=== PATIENT | male | born 1975 | race Two or more races ===

== ENCOUNTER 2019-07-15 21:50 | Emergency (ER) | payer BC, OTHER ==
[2019-07-15] MEDS ORDERED: Sodium Chloride 0.9% 1,000 ML IV ONE (21:52)
--- NOTE | 2019-07-15 21:55 | EDM.PDOC ---
ED HPI GENERAL MEDICAL PROBLEM - General Chief Complaint: Neuro Symptoms/Deficits Stated Complaint: SEIZURE Time Seen by Provider: 07/15/19 21:55 Source of Information: Reports: Patient - History of Present Illness INITIAL COMMENTS - FREE TEXT/NARRATIVE: HISTORY AND PHYSICAL: History of present illness: [Patient with seizure disorder presents post seizure, he had stopped his Dilantin one week prior generally taking 600 mg by mouth daily at bedtime currently asymptomatic no fever nausea vomiting chills sweats no chest pain shortness breath headache dizziness palpitation no bowel or urine symptoms] Review of systems: As per history of present illness and below otherwise all systems reviewed and negative. Past medical history: As per history of present illness and as reviewed below otherwise noncontributory. Surgical history: As per history of present illness and as reviewed below otherwise noncontributory. Social history: No reported history of drug or alcohol abuse. Family history: As per history of present illness and as reviewed below otherwise noncontributory. Physical exam: HEENT: Atraumatic, normocephalic, pupils reactive, negative for conjunctival pallor or scleral icterus, mucous membranes moist, throat clear, neck supple, nontender, trachea midline. Lungs: Clear to auscultation, breath sounds equal bilaterally, chest nontender. Heart: S1S2, regular, negative for clicks, rubs, or JVD. Abdomen: Soft, nondistended, nontender. Negative for masses or hepatosplenomegaly. Negative for costovertebral tenderness. Pelvis: Stable nontender. Genitourinary: Deferred. Rectal: Deferred. Extremities: Atraumatic, negative for cords or calf pain. Neurovascular unremarkable. Neuro: Awake, alert, oriented. Cranial nerves II through XII unremarkable. Cerebellum unremarkable. Motor and sensory unremarkable throughout. Exam nonfocal. Diagnostics: [CBC CMP UA ] Therapeutics: [Saline Valium Dilantin Dilantin] 100 mg tabs 300 mg by mouth twice a day 1 month no refill Impression: [ seizure disorder Medication noncompliance ] Definitive disposition and diagnosis as appropriate pending reevaluation and review of above. - Related Data Allergies Allergy/AdvReac Type Severity Reaction Status Date / Time No Known Allergies Allergy Verified 07/15/19 21:57 Home Meds: Home Meds Phenytoin Sodium Extended [Dilantin] 600 mg PO BEDTIME 01/11/14 [History] ED ROS GENERAL - Review of Systems Review Of Systems: See Below ED EXAM, GENERAL - Physical Exam Exam: See Below Course - Vital Signs Last Recorded V/S: Last Vital Signs Temp 97.4 F 07/15/19 21:59 Pulse 68 07/15/19 21:59 Resp 18 07/15/19 21:59 BP 119/84 07/15/19 21:59 Pulse Ox 98 07/15/19 21:59 - Orders/Labs/Meds Orders: Active Orders 24 hr Category Date Time Status EKG Documentation Completion [RC] STAT Care 07/15/19 21:52 Active COMPREHENSIVE METABOLIC PN,CMP [CHEM] Stat Lab 07/15/19 21:59 Received DILANTIN,PHENYTOIN [CHEM] Stat Lab 07/15/19 21:59 Received Phenytoin 1,000 mg Med 07/15/19 22:11 Active Sodium Chloride 0.9% [Normal Saline] 250 ml IV ONETIME Sodium Chloride 0.9% [Normal Saline] 1,000 ml Med 07/15/19 21:52 Active IV STAT Medication Orders Sodium Chloride (Normal Saline) 1,000 mls @ 999 mls/hr IV STAT ONE Stop: 07/15/19 22:52 Last Admin: 07/15/19 22:10 Dose: 999 mls/hr Phenytoin Sodium 1,000 mg/ (Sodium Chloride) 270 mls @ 250 mls/hr IV ONETIME ONE Stop: 07/15/19 23:15 Labs: Laboratory Tests 07/15/19 Range/Units 21:59 WBC 5.55 (4.0-11.0) K/uL RBC 5.00 (4.50-5.90) M/uL Hgb 16.0 (13.0-17.0) g/dL Hct 44.6 (38.0-50.0) % MCV 89.2 (80.0-98.0) fL MCH 32.0 (27.0-32.0) pg MCHC 35.9 (31.0-37.0) g/dL RDW Std Deviation 41.9 (28.0-62.0) fl RDW Coeff of Reece 13 (11.0-15.0) % Plt Count 212 (150-400) K/uL MPV 10.80 (7.40-12.00) fL Neut % (Auto) 33.4 L (48.0-80.0) % Lymph % (Auto) 50.6 H (16.0-40.0) % [place] % (Auto) 13.5 (0.0-15.0) % Eos % (Auto) 2.0 (0.0-7.0) % Baso % (Auto) 0.5 (0.0-1.5) % Neut # (Auto) 1.9 (1.4-5.7) K/uL Lymph # (Auto) 2.8 H (0.6-2.4) K/uL [place] # (Auto) 0.8 (0.0-0.8) K/uL Eos # (Auto) 0.1 (0.0-0.7) K/uL Baso # (Auto) 0.0 (0.0-0.1) K/uL Nucleated RBC % 0.0 /100WBC Nucleated RBCs # 0 K/uL Meds: Medications Generic Name Dose Route Start Last Admin Trade Name Freq PRN Reason Stop Dose Admin Sodium Chloride 1,000 mls @ 999 mls/hr 07/15/19 21:52 07/15/19 22:10 Normal Saline IV 07/15/19 22:52 999 mls/hr STAT ONE Administration Phenytoin Sodium 1,000 mg/ 270 mls @ 250 mls/hr 07/15/19 22:11 Sodium Chloride IV 07/15/19 23:15 ONETIME ONE Discontinued Medications Generic Name Dose Route Start Last Admin Trade Name Freq PRN Reason Stop Dose Admin Diazepam 5 mg 07/15/19 21:52 07/15/19 22:12 Valium IVPUSH 07/15/19 21:53 5 mg ONETIME ONE Administration Diazepam Confirm 07/15/19 22:06 07/15/19 22:10 Valium Administered 07/15/19 22:07 5 mg Dose Administration 5 mg .ROUTE .STK-MED ONE Departure - Departure Time of Disposition: 22:15 Disposition: Home, Self-Care 01 Condition: Good Clinical Impression: Seizure disorder, Nonadherence to medication - Discharge Information Referrals: PCP,None [Primary Care Provider] - Forms: ED Department Discharge Additional Instructions: The following information is given to patients seen in the emergency department who are being discharged to home. This information is to outline your options for follow-up care. We provide all patients seen in our emergency department with a follow-up referral. The need for follow-up, as well as the timing and circumstances, are variable depending upon the specifics of your emergency department visit. If you don't have a primary care physician on staff, we will provide you with a referral. We always advise you to contact your personal physician following an emergency department visit to inform them of the circumstance of the visit and for follow-up with them and/or the need for any referrals to a consulting specialist. The emergency department will also refer you to a specialist when appropriate. This referral assures that you have the opportunity for follow-up care with a specialist. All of these measure are taken in an effort to provide you with optimal care, which includes your follow-up. Under all circumstances we always encourage you to contact your private physician who remains a resource for coordinating your care. When calling for follow-up care, please make the office aware that this follow-up is from your recent emergency room visit. If for any reason you are refused follow-up, please contact the [facility] emergency department at and asked to speak to the emergency department charge nurse. - My Orders Last 24 Hours: My Active Orders 07/15/19 21:52 EKG Documentation Completion [RC] STAT Sodium Chloride 0.9% [Normal Saline] 1,000 ml IV STAT 07/15/19 21:59 COMPREHENSIVE METABOLIC PN,CMP [CHEM] Stat DILANTIN,PHENYTOIN [CHEM] Stat 07/15/19 22:11 Phenytoin 1,000 mg Sodium Chloride 0.9% [Normal Saline] 250 ml IV ONETIME - Assessment/Plan Last 24 Hours: My Active Orders 07/15/19 21:52 EKG Documentation Completion [RC] STAT Sodium Chloride 0.9% [Normal Saline] 1,000 ml IV STAT 07/15/19 21:59 COMPREHENSIVE METABOLIC PN,CMP [CHEM] Stat DILANTIN,PHENYTOIN [CHEM] Stat 07/15/19 22:11 Phenytoin 1,000 mg Sodium Chloride 0.9% [Normal Saline] 250 ml IV ONETIME
[2019-07-15] MEDS: diazePAM 5 MG/ML MDV ONE (22:10)
[2019-07-15 22:29] LABS: BLOOD UREA NITROGEN,BUN 15 mg/dL (7.0-18.0); CARBON DIOXIDE,CO2 25.8 mmol/L (21.0-32.0); CHLORIDE,CL 103 mmol/L (98-107); GLUCOSE RANDOM 96 mg/dL (74-106); POTASSIUM,K 4.1 mmol/L (3.5-5.1); SODIUM,NA 140 mmol/L (136-148)
== END 2019-07-15 23:52 | disposition home or self-care (01) ==
LOC: MW.ED 21:50
DX: G40.909 Epilepsy, unspecified, not intractable, without status epilepticus (principal); Z91.14 Patient's other noncompliance with medication regimen
CPT/HCPCS: 36415; 80053; 80185; 82962; 85025; 96365; 96375; 99284; J1165; J3360; J7040; J7050; 93005

== ENCOUNTER 2022-02-18 12:52 | Emergency (ER) | payer BC | END 2022-02-18 13:20 | disposition home or self-care (01) | LOC: MW.ED 12:52 | DX: L03.114 Cellulitis of left upper limb (principal); Z79.899 Other long term (current) drug therapy | CPT/HCPCS: 99282 ==

== ENCOUNTER 2022-03-06 14:08 | Emergency (ER) | payer BC | END 2022-03-06 14:55 | disposition home or self-care (01) | LOC: MW.ED 14:08 | DX: G40.909 Epilepsy, unspecified, not intractable, without status epilepticus (principal); Z76.0 Encounter for issue of repeat prescription | CPT/HCPCS: 36415; 80185; 99282; 99283 ==

== ENCOUNTER 2022-03-28 10:07 | Emergency (ER) | payer BC | END 2022-03-28 12:48 | disposition home or self-care (01) | LOC: MW.ED 10:07 | DX: U07.1 COVID-19 (principal) | CPT/HCPCS: 99282; 99283; U0002 ==

== ENCOUNTER 2022-04-02 12:44 | Emergency (ER) | payer BC | END 2022-04-02 13:31 | disposition home or self-care (01) | LOC: MW.ED 12:44 | DX: Z00.00 Encounter for general adult medical examination without abnormal findings (principal); Z86.16 Personal history of COVID-19 | CPT/HCPCS: 99281 ==

== ENCOUNTER 2023-03-09 14:46 | Emergency (ER) | payer BC | END 2023-03-09 16:01 | disposition left against medical advice (07) | LOC: MW.ED 14:46 | DX: Z53.21 Procedure and treatment not carried out due to patient leaving prior to being seen by health care provider (principal) ==

== ENCOUNTER 2023-05-12 13:11 | Emergency (ER) | payer BC | END 2023-05-12 14:58 | disposition home or self-care (01) | LOC: MW.ED 13:11 | DX: K04.7 Periapical abscess without sinus (principal); Z72.0 Tobacco use | CPT/HCPCS: 99282 ==